=== PATIENT | female | born 1980 | race Caucasian/White ===

== ENCOUNTER 2021-02-15 09:44 | Outpatient (REF) | payer OTHER, SELFPAY ==
[2021-02-15 12:42] LABS: Alanine Aminotransferase 14 U/L (0-31); Anion Gap 12 (12-20); Aspartate Amino Transferase 15 U/L (5-31); Blood Urea Nitrogen 14 mg/dL (9-16); Calcium 9.4 mg/dL (8.4-10.2); Carbon Dioxide 25 mmol/L (22-29); Chloride 107 mmol/L (96-108); Cholesterol 196 mg/dL; Estimated Glomerular Filt Rate > 60; Glucose Fasting 84 mg/dL (60-99); HDL Cholesterol 71 mg/dL; LDL Cholesterol Calculated 107 mg/dl; Potassium 4.6 mmol/L (3.3-5.1); Sodium 139 mmol/L (135-145); Triglycerides 91 mg/dL
[2021-02-15 13:06] LABS: TSH reflex Free T4 2.28 uIU/mL (0.32-4.0); Vitamin D 25-OH Total 16.1 ng/mL (>30)
== END 2021-02-15 09:45 | disposition home or self-care (01) ==
LOC: HO.HMGCLDS 09:44
PROVIDERS: PCP Internal Medicine; Visit Provider Internal Medicine
DX: Z00.00 Encounter for general adult medical examination without abnormal findings (principal); F41.1 Generalized anxiety disorder; Z83.49 Family history of other endocrine, nutritional and metabolic diseases; F44.1 Dissociative fugue
CPT/HCPCS: 36415; 80048; 80061; 82306; 84443; 84450; 84460

== ENCOUNTER 2021-04-05 16:14 | Outpatient (REF) | payer OTHER, SELFPAY ==
--- NOTE | ~2021-04-05 | MM_ITS ---
EXAMINATION: MM SCREENING DIGITAL BREAST TOMOSYNTHESIS, BILATERAL CLINICAL INFORMATION: Screening. Asymptomatic. No prior mammography. Age 41. No known family history breast cancer. The lifetime risk of breast cancer based on the Tyrer-Cuzick Model is 9%. COMPARISON: None (current study represents initial baseline exam). TECHNIQUE: Digital breast tomosynthesis is performed in both the craniocaudal and mediolateral oblique views along with computer-aided detection (CAD). Synthesized 2D images are generated from the tomosynthesis. FINDINGS: The breasts are heterogeneously dense, which may obscure small masses (ACR BI-RADS breast composition Category c). There are no significant masses, abnormal calcifications, or other abnormalities. No architectural abnormality. The axilla and skin contours are unremarkable. MM/MM tomosynthesis screening BI IMPRESSION: No mammographic evidence of malignancy. ASSESSMENT: BI-RADS 1: Negative RECOMMENDATION: Routine annual mammography screening. This patient's information was entered into a reminder system with a target due date for their next mammogram.
== END 2021-04-05 16:15 | disposition home or self-care (01) ==
LOC: HO.MAMMO 16:14
PROVIDERS: Visit Provider Internal Medicine
DX: Z12.31 Encounter for screening mammogram for malignant neoplasm of breast (principal)
CPT/HCPCS: 77063; 77067

== ENCOUNTER 2022-02-19 13:20 | Outpatient (AMB) | payer OTHER, SELFPAY ==
[2022-02-19 13:33] VITALS: BP 100/58; PULSE 70; O2SAT 100; BMI 30.2
--- NOTE | 2022-02-19 13:33 | MHC.PC.OV ---
Vital Signs 02/19/22 13:33 Height 5 ft 6 in Weight 187 lb 6 oz BMI 30.2 BP 100/58 L Blood Pressure Location Rt brachial Position Sitting Pulse 70 Pulse Source Pulse Oximeter Pulse Oximetry (%) 100 Oxygen Delivery Method Room Air Intake Visit Reasons: ELIZABETH ramirez Allergies No Known Allergies Allergy (Verified 04/14/24 14:37) Medication List - Last Reconciled 02/19/22 by Lindsey Garza MD buspirone 5 mg PO BID cetirizine (Zyrtec) 10 mg PO DAILY PRN cholecalciferol (vitamin D3) 25 mcg PO DAILY Tobacco use date assessed: 02/19/22 HPI ELIZABETH ramirez HPI Details ] PFSH Medical History Multiple atypical skin moles Seasonal allergies Family history of thyroid disease in mother Generalized anxiety disorder Surgical History No pertinent past surgical history Social History Housing: House Patient Tobacco Use Status: Never used Tobacco e-Cigarette/Vaping Use: Never Used service: No Current occupational status: employed Cognitive needs: No Hearing needs: No Vision needs: Yes Questionnaire PHQ-9 Over the last 2 weeks, how often have you been bothered by any of the following problems? 1. Little interest or pleasure in doing things: several days 2. Feeling down, depressed, or hopeless: several days 3. Trouble falling or staying asleep, or sleeping too much: not at all 4. Feeling tired or having little energy: more than half the days 5. Poor appetite or overeating: more than half the days 6. Feeling bad about yourself - or that you are a failure or have let yourself or your family down: several days 7. Trouble concentrating on things, such as reading the newspaper or watching television: not at all 8. Moving or speaking so slowly that other people could have noticed. Or the opposite - being so fidgety or restless that you have been moving around a lot more than usual: not at all 9. Thoughts that you would be better off or of hurting yourself in some way: not at all Total score: 7 Source: Developed by Drs. Rodolfo Diallo, Isaiah Drake and colleagues, with an educational amber from [employer]. Thrive Questionnaire Date Thrive assessed: 02/19/22 I am a: Patient What is your living situation today?: I have a steady place to live Within the past 12 months, did the food you bought not last and you didn't have the money to get more?: Never true Within the past 12 months, did you worry whether your food would run out before you got money to buy more?: Never true Do you have trouble paying for medicines?: No Do you have trouble getting transportation to medical appointments?: No Do you have trouble paying your heating and electricity bill?: No Do you have trouble taking care of your child, family member or friend?: No Do you have trouble with day-to-day activities such as bathing, preparing meals, shopping, managing finances, etc.?: No Are you currently unemployed and looking for a job?: No Are you interested in more education?: Yes Currently or been in a relationship where the following occur: no concerns reported AUDIT C Alcohol Use Questionnaire (AUDIT-C) 1. How often do you have a drink containing alcohol?: 2-3 times a week 2. How many drinks containing alcohol do you have on a typical day when you are drinking?: 1 or 2 3. How often do you have six or more drinks on one occasion?: Never Total Score: 3 CORA-7 AMB Questionnaire CORA-7 Date CORA - 7 assessed: 03/14/21 Feeling nervous, anxious, or on edge: 1 = Several days Not being able to stop or control worryin = Several days Worrying too much about different things: 1 = Several days Trouble relaxin = Not at all Being so restless that it is hard to sit still: 1 = Several days Becoming easily annoyed or irritable: 1 = Several days Feeling afraid as if something awful might happen: 0 = Not at all Total CORA-7 score (0-4 normal; 5-9 mild; 10-14 moderate; 15-21 severe): 5 Source: Developed by Katerin York Kurt Kroenke and colleagues, with an educational amber from [employer]. Physical exam (Primary Care) Vital Signs: Last Vital Signs Pulse 70 02/19/22 13:33 BP 100/58 L 02/19/22 13:33 Pulse Ox 100 02/19/22 13:33 Oxygen Delivery Method Room Air 02/19/22 13:33 BMI result Body Mass Index 30.2 Tobacco/Smoking Status: Tobacco use Status Tobacco use date assessed 02/19/22 02/19/22 13:38 Patient Tobacco Use Status Never used Tobacco 02/19/22 13:38 e-Cigarette/Vaping Use Never Used 02/19/22 13:38 PHQ-9: PHQ-9 Score PHQ-9: Total score 7 02/19/22 13:53 Thrive Assessment: Date of Thrive Assessment Date Thrive assessed 02/19/22 02/19/22 13:38 Currently or been in a relationship where the following occur: no concerns reported Coding Level of Care Code Admin Sign Off/No Billing Diagnoses Generalized anxiety disorder F41.1 Annual visit for general adult medical examination with abnormal findings Z00.01
== END 2022-02-19 14:10 | disposition home or self-care (01) ==
LOC: HO.HMGC 13:20
PROVIDERS: PCP Internal Medicine; Visit Provider Internal Medicine
DX: F41.1 Generalized anxiety disorder (principal); Z00.01 Encounter for general adult medical examination with abnormal findings
CPT/HCPCS: 99499

== ENCOUNTER 2022-02-21 06:54 | Outpatient (REF) | payer OTHER, SELFPAY ==
[2022-02-21 12:09] LABS: Alanine Aminotransferase 11 U/L (0-31); Anion Gap 14 (12-20); Aspartate Amino Transferase 17 U/L (5-31); Blood Urea Nitrogen 18 mg/dL (9-16); Calcium 9.4 mg/dL (8.4-10.2); Carbon Dioxide 25 mmol/L (22-29); Chloride 107 mmol/L (96-108); Cholesterol 144 mg/dL; Estimated Glomerular Filt Rate > 60; Glucose Fasting 87 mg/dL (60-99); HDL Cholesterol 70 mg/dL; LDL Cholesterol Calculated 60 mg/dl; Potassium 4.5 mmol/L (3.3-5.1); Sodium 141 mmol/L (135-145); Triglycerides 74 mg/dL
[2022-02-21 12:14] LABS: Vitamin D 25-OH Total 32.2 ng/mL (>30)
== END 2022-02-21 06:55 | disposition home or self-care (01) ==
LOC: HO.HMGCLDS 06:54
PROVIDERS: PCP Internal Medicine; Visit Provider Internal Medicine
DX: Z00.01 Encounter for general adult medical examination with abnormal findings (principal); F41.1 Generalized anxiety disorder
CPT/HCPCS: 36415; 80048; 80061; 82306; 84450; 84460

== ENCOUNTER 2022-05-31 08:37 | Outpatient (REF) | payer OTHER, SELFPAY ==
--- NOTE | ~2022-05-31 | MM_ITS ---
EXAMINATION: MM SCREENING DIGITAL BREAST TOMOSYNTHESIS, BILATERAL CLINICAL INFORMATION: Screening. Asymptomatic. The lifetime risk of breast cancer based on the Tyrer-Cuzick Model is 8%. COMPARISON: Mammography: April 05, 2021 TECHNIQUE: Digital breast tomosynthesis is performed in both the craniocaudal and mediolateral oblique views along with computer-aided detection (CAD). Synthesized 2D images are generated from the tomosynthesis. FINDINGS: The breasts are extremely dense, which lowers the sensitivity of mammography (ACR BI-RADS breast composition Category d). There are no significant masses, abnormal calcifications, or other abnormalities. MM/MM tomosynthesis screening BI IMPRESSION: No significant changes from prior exam. ASSESSMENT: BI-RADS 1: Negative RECOMMENDATION: Routine annual mammography screening. This patient's information was entered into a reminder system with a target due date for their next mammogram.
== END 2022-05-31 08:38 | disposition home or self-care (01) ==
LOC: HO.MAMMO 08:37
PROVIDERS: PCP Internal Medicine; Visit Provider Internal Medicine
DX: Z12.31 Encounter for screening mammogram for malignant neoplasm of breast (principal)
CPT/HCPCS: 77063; 77067

== ENCOUNTER 2023-04-06 08:30 | Outpatient (AMB) | payer OTHER, SELFPAY ==
--- NOTE | 2023-04-06 08:34 | MHC.PC.OV ---
Vital Signs 04/06/23 08:39 Height 5 ft 6 in Weight 191 lb BMI 30.8 BP 92/62 Blood Pressure Location Lt brachial Position Sitting Pulse 55 Pulse Source Pulse Oximeter Pulse Oximetry (%) 99 Oxygen Delivery Method Room Air Intake Visit Reasons: Annual PE Intake Note: Pt is here today for her PE: last mammogram 05/31/22, papsmear 07/2022 Allergies No Known Allergies Allergy (Verified 04/06/23 08:52) Medication List - Last Reconciled 04/06/23 by Lindsey Garza MD buspirone 5 mg PO BID cetirizine (Zyrtec) 10 mg PO DAILY PRN cholecalciferol (vitamin D3) 25 mcg PO DAILY Tobacco use date assessed: 04/06/23 Dental Screening Dental Screen Date: 04/06/23 Did you have a dental visit in the last 12 months?: Yes Did you have a dental problem in the last 6 months where you did not have access to dental care?: No Was dental information given to patient?: Patient has dentist HPI Annual PE HPI Details 43-year-old lady here today for physical exam. She is up-to-date with her mammogram done last 05/31/22, and her pap smear was done. . 07/2022. She takes buspirone 5 mg 1 tablet twice a day for her generalized anxiety disorder which has been helping, usually takes twice a day but sometimes would take an occasional dose when she is out in public in the movie house or in a restaurant when she gets an anxiety attack. Has multiple moles on her body mainly on her upper back and left thigh which she would like checked by dermatology. No history of melanoma or skin cancer in the family. She does use sunscreen. [facility] Medical History (Updated 04/06/23 @ 09:09 by Lindsey Garza MD) Multiple atypical skin moles Seasonal allergies Family history of thyroid disease in mother Generalized anxiety disorder Surgical History No pertinent past surgical history Social History Housing: House Patient Tobacco Use Status: Never used Tobacco e-Cigarette/Vaping Use: Never Used service: No Current occupational status: employed Cognitive needs: No Hearing needs: No Vision needs: No Female Reproductive History Menstrual Date of last pap smear: 08/15/22 (Sees Dr. Mar) Questionnaire PHQ-9 Over the last 2 weeks, how often have you been bothered by any of the following problems? 1. Little interest or pleasure in doing things: several days 2. Feeling down, depressed, or hopeless: not at all 3. Trouble falling or staying asleep, or sleeping too much: several days 4. Feeling tired or having little energy: several days 5. Poor appetite or overeating: several days 6. Feeling bad about yourself - or that you are a failure or have let yourself or your family down: not at all 7. Trouble concentrating on things, such as reading the newspaper or watching television: not at all 8. Moving or speaking so slowly that other people could have noticed. Or the opposite - being so fidgety or restless that you have been moving around a lot more than usual: not at all 9. Thoughts that you would be better off or of hurting yourself in some way: not at all Total score: 4 Depression Screening Interpretation: Positive Depression Screening Done: Yes [id number] - PHQ-9 Billing: Yes Source: Developed by Drs. Rodolfo Diallo, Katerin Taveras, Isaiah Moulton and colleagues, with an educational amber from [employer]. Thrive Questionnaire Date Thrive assessed: 04/06/23 I am a: Patient What is your living situation today?: I have a steady place to live Within the past 12 months, did the food you bought not last and you didn't have the money to get more?: Never true Within the past 12 months, did you worry whether your food would run out before you got money to buy more?: Never true Do you have trouble paying for medicines?: No Do you have trouble getting transportation to medical appointments?: No Do you have trouble paying your heating and electricity bill?: No Do you have trouble taking care of your child, family member or friend?: No Do you have trouble with day-to-day activities such as bathing, preparing meals, shopping, managing finances, etc.?: No Are you currently unemployed and looking for a job?: No Are you interested in more education?: No THRIVE Score: 0 AUDIT C Alcohol Use Questionnaire (AUDIT-C) 1. How often do you have a drink containing alcohol?: 2-3 times a week 2. How many drinks containing alcohol do you have on a typical day when you are drinking?: 1 or 2 3. How often do you have six or more drinks on one occasion?: Never Total Score: 3 CORA-7 AMB Questionnaire CORA-7 Date CORA - 7 assessed: 04/06/23 Feeling nervous, anxious, or on edge: 1 = Several days Not being able to stop or control worryin = Not at all Worrying too much about different things: 0 = Not at all Trouble relaxin = Several days Being so restless that it is hard to sit still: 0 = Not at all Becoming easily annoyed or irritable: 1 = Several days Feeling afraid as if something awful might happen: 0 = Not at all Total CORA-7 score (0-4 normal; 5-9 mild; 10-14 moderate; 15-21 severe): 3 Source: Developed by Drs. Rodolfo Diallo, Katerin Taveras, Isaiah Moulton and colleagues, with an educational amber from [employer]. CORA-7 Assessment Billing CORA-7 Assessment Tool: CORA-7 Assessment 77150 Review of Systems Const Denies fatigue, Denies headache(s) and Denies weakness Eyes Details: Has myopia, up-to-date with her eye exam ENT Reports Normal hearing present, Denies dizziness, Denies headache(s) and Denies nasal congestion Card Denies chest pain, Denies lightheadedness, Denies palpitations and Denies dyspnea Resp Denies chest congestion, Denies cough and Denies dyspnea GI Denies abdominal pain, Denies change in bowel habits and Denies heartburn Reports no additional complaints Musc Reports no additional complaints Skin/Breast Reports as per HPI, Denies breast swelling, Denies breast skin changes, Denies breast pain, Denies breast mass and Denies rash Neuro Reports Normal hearing present, Denies dizziness, Denies headache(s), Denies Sensory deficit (Neuro) and Denies weakness Psych Reports no additional complaints Endo Denies fatigue and Denies palpitations Romie/Lymph Reports no additional complaints Aller/Immun Reports no additional complaints Physical exam (Primary Care) Vital Signs: Last Vital Signs Pulse 55 04/06/23 08:39 BP 92/62 04/06/23 08:39 Pulse Ox 99 04/06/23 08:39 Oxygen Delivery Method Room Air 04/06/23 08:39 BMI result Body Mass Index 30.8 Tobacco/Smoking Status: Tobacco use Status Tobacco use date assessed 04/06/23 04/06/23 08:37 Patient Tobacco Use Status Never used Tobacco 04/06/23 08:37 e-Cigarette/Vaping Use Never Used 04/06/23 08:37 PHQ-9: PHQ-9 Score PHQ-9: Total score 4 04/06/23 08:44 Depression Screening Interpretation: Positive Thrive Assessment: Date of Thrive Assessment Date Thrive assessed 04/06/23 04/06/23 08:37 Const General: cooperative, healthy appearing, no acute distress and alert Orientation/consciousness: patient oriented x3 Limitations: no limitations HENMT Head: Yes normal to inspection, Yes normocephalic and Yes atraumatic Ears: hearing grossly normal bilaterally, external ears normal, TM's normal bilaterally and EAC's normal General nose exam: Normal external nose present, Normal nasal mucous membranes and turbinates present and No nasal discharge present Face and sinus: Yes normal facial exam, Yes sinuses nontender and Yes face symmetric Mouth: Normal oral and palatal mucosa present, lip normal, tongue normal, oropharynx normal and moist mucous membranes Eyes Conjunctivae: conjunctivae normal Sclerae: sclerae normal Pupils: Equal, round and reactive pupils present EOM: EOMs intact bilaterally Neck Neck: Yes full ROM and Yes no lymphadenopathy Thyroid: Thyroid normal (Nonpalpable) Chest Breast/axilla palpation: normal palpation of the breasts Resp Effort & Inspection: normal respiratory effort and able to speak in complete sentences Auscultation: clear to auscultation bilaterally Cardio Jugular venous distension: no JVD Rate: regular rate Rhythm: regular rhythm Heart sounds: S1 normal heart sound present and S2 normal heart sound present GI Inspection: Yes normal to inspection Palpation (GI): Soft to palpation, nontender, no guarding and no masses Auscultation: normal bowel sounds General: Yes no CVA tenderness Back/Spine/Pelvis Back: no CVA tenderness Skin General skin exam: no rashes or lesions noted Neuro General: patient oriented x3, gait normal, moves all extremities, no focal motor deficits and CN's II-XI intact bilaterally Cranial nerves: Yes Equal, round and reactive pupils present and Yes Normal hearing present Cognition (Neuro): normal cognition Gait exam (Neuro): Normal gait present Motor exam (neuro): 5/5 motor strength present throughout Sensory Exam: No Sensory deficit (Neuro) Extrem General: Yes normal to inspection, Yes full ROM, Yes no pedal edema and Yes normal gait Psych Appearance: grossly normal and well kempt Mental Status: mental status grossly normal Speech and movement: Normal speech and movement present Affect: normal affect Attitude: cooperative Thought process: Normal thought process present Thought content: Normal thought content present Assessment and Plan Assessment & Plan (1) Annual visit for general adult medical examination with abnormal findings: Code(s): Z00.01 - Encounter for general adult medical examination with abnormal findings Plan: Will check appropriate labs. Continue with regular dental visit every 6 months and regular eye exams, goes to [place] for her routine eye exam. Take adequate calcium in diet and vitamin-D 3 at 2000 IU per cap once a day, in addition to weight-bearing exercises to help maintain good muscle tone and weight control. Up-to-date with her cervical cancer screening, and mammogram. Has had COVID vaccines in the past, does not want to get the booster, up-to-date with her flu vaccine (2) Generalized anxiety disorder: Code(s): F41.1 - Generalized anxiety disorder Plan: Continue with buspirone 5 mg 1 tablet twice a day takes an occasional dose as needed for acute anxiety attacks. (3) Family history of thyroid disease in mother: Code(s): Z83.49 - Family history of other endocrine, nutritional and metabolic diseases Plan: Will check TSH with free T4, patient currently asymptomatic (4) Multiple atypical skin moles: Code(s): D22.9 - Melanocytic nevi, unspecified Plan: Referred to [facility] for evaluation of moles on upper back and left thigh and for routine skin exam (5) Skin cancer screening: Code(s): Z12.83 - Encounter for screening for malignant neoplasm of skin Plan: Referred to [facility] Orders: Orders Basic Metabolic Panel Fasting Today F41.1 - Generalized anxiety disorder, Z00.01 - Encounter for general adult medical examination with abnormal findings, Z13.1 - Encounter for screening for diabetes mellitus, Z13.220 - Encounter for screening for lipoid disorders Alanine Aminotransferase Today F41.1 - Generalized anxiety disorder, Z00.01 - Encounter for general adult medical examination with abnormal findings, Z13.1 - Encounter for screening for diabetes mellitus, Z13.220 - Encounter for screening for lipoid disorders Aspartate Amino Transferase Today F41.1 - Generalized anxiety disorder, Z00.01 - Encounter for general adult medical examination with abnormal findings, Z13.1 - Encounter for screening for diabetes mellitus, Z13.220 - Encounter for screening for lipoid disorders Lipid Panel Today F41.1 - Generalized anxiety disorder, Z00.01 - Encounter for general adult medical examination with abnormal findings, Z13.1 - Encounter for screening for diabetes mellitus, Z13.220 - Encounter for screening for lipoid disorders Vitamin D 25-OH Total Today F41.1 - Generalized anxiety disorder, Z00.01 - Encounter for general adult medical examination with abnormal findings, Z13.1 - Encounter for screening for diabetes mellitus, Z13.220 - Encounter for screening for lipoid disorders TSH reflex Free T4 Today Z83.49 - Family history of other endocrine, nutritional and metabolic diseases Referrals Dermatology Referral D22.9 - Melanocytic nevi, unspecified, Z12.83 - Encounter for screening for malignant neoplasm of skin Coding Level of Care Code Est Pt Prev Care 40-64y([id number]) Diagnoses Annual visit for general adult medical examination with abnormal findings Z00.01 Generalized anxiety disorder F41.1 Family history of thyroid disease in mother Z83.49 Multiple atypical skin moles D22.9 Skin cancer screening Z12.83 Additional Codes CORA-7 Assessment Billing - CORA-7 Assessment Tool: CORA-7 Assessment [id number] ([id number])
[2023-04-06 08:39] VITALS: BP 92/62; PULSE 55; O2SAT 99; BMI 30.8
== END 2023-04-06 09:11 | disposition home or self-care (01) ==
PROVIDERS: PCP Internal Medicine; Visit Provider Internal Medicine
DX: Z00.00 Encounter for general adult medical examination without abnormal findings (principal); F41.1 Generalized anxiety disorder; Z83.49 Family history of other endocrine, nutritional and metabolic diseases; D22.9 Melanocytic nevi, unspecified; Z12.83 Encounter for screening for malignant neoplasm of skin
CPT/HCPCS: 99396

== ENCOUNTER 2023-04-06 09:12 | Outpatient (REF) | payer OTHER, SELFPAY ==
[2023-04-06 11:40] LABS: Alanine Aminotransferase 12 U/L (0-31); Anion Gap 12 (12-20); Aspartate Amino Transferase 16 U/L (5-31); Blood Urea Nitrogen 13 mg/dL (9-16); Calcium 9.2 mg/dL (8.4-10.2); Carbon Dioxide 25 mmol/L (22-29); Chloride 106 mmol/L (96-108); Cholesterol 157 mg/dL (<200); Estimated Glomerular Filt Rate > 60; Glucose Fasting 86 mg/dL (60-99); HDL Cholesterol 66 mg/dL (>40); LDL Cholesterol Calculated 80 mg/dL (<100); Sodium 139 mmol/L (135-145); Triglycerides 55 mg/dL (<150)
[2023-04-06 11:46] LABS: TSH reflex Free T4 2.17 uIU/mL (0.32-4.0); Vitamin D 25-OH Total 29.4 ng/mL (>30)
== END 2023-04-06 09:13 | disposition home or self-care (01) ==
LOC: HO.HMGCLDS 09:12
PROVIDERS: PCP Internal Medicine; Visit Provider Internal Medicine
DX: Z00.01 Encounter for general adult medical examination with abnormal findings (principal); F41.1 Generalized anxiety disorder; Z13.220 Encounter for screening for lipoid disorders; Z13.1 Encounter for screening for diabetes mellitus; Z83.49 Family history of other endocrine, nutritional and metabolic diseases
CPT/HCPCS: 36415; 80048; 80061; 82306; 84443; 84450; 84460

== ENCOUNTER 2023-06-06 07:57 | Outpatient (REF) | payer OTHER, SELFPAY ==
--- NOTE | ~2023-06-06 | MM_ITS ---
EXAMINATION: MM SCREENING DIGITAL BREAST TOMOSYNTHESIS, BILATERAL CLINICAL INFORMATION: Screening. Asymptomatic. COMPARISON: Mammography: This study is compared with prior exams dating back to 2021. TECHNIQUE: Digital breast tomosynthesis is performed in both the craniocaudal and mediolateral oblique views along with computer-aided detection (CAD). Synthesized 2D images are generated from the tomosynthesis. FINDINGS: The breasts are heterogeneously dense, which may obscure small masses (ACR BI-RADS breast composition Category c). There are no significant masses, abnormal calcifications, or other abnormalities. MM/MM tomosynthesis screening BI IMPRESSION: No mammographic evidence of malignancy. ASSESSMENT: BI-RADS BI-RADS 1 - Negative RECOMMENDATION: Routine annual mammography screening. 1 year F/U This examination should not preclude the clinical evaluation of a suspicious palpable abnormality. This patient's information was entered into a reminder system with a target due date for their next mammogram.
== END 2023-06-06 07:58 | disposition home or self-care (01) ==
LOC: HO.MAMMO 07:57
PROVIDERS: PCP Internal Medicine; Visit Provider Internal Medicine
DX: Z12.31 Encounter for screening mammogram for malignant neoplasm of breast (principal)
CPT/HCPCS: 77063; 77067

== ENCOUNTER → 2023-06-06 08:00 | Outpatient (BNV) | payer OTHER, SELFPAY | PROVIDERS: PCP Internal Medicine; Visit Provider Radiology Diagnostic Radiology | DX: Z12.31 Encounter for screening mammogram for malignant neoplasm of breast (principal) | CPT/HCPCS: 77063; 77067 ==

== ENCOUNTER 2024-04-14 13:54 | Outpatient (AMB) | payer OTHER, SELFPAY ==
--- NOTE | 2024-04-14 14:17 | A.OFFPC_ITS ---
Vital Signs 04/14/24 14:22 Height 5 ft 6 in Weight 192 lb BMI 31.0 BP 100/68 Blood Pressure Location Rt brachial Position Sitting Respiration 15 Pulse 80 Pulse Source Pulse Oximeter Temp 97.7 F Temp Source Oral Pulse Oximetry (%) 100 Oxygen Delivery Method Room Air Intake Visit Reasons: Annual PE Intake Note: Pt is here today for her PE: Last mammogram 06/06/23, papsmear 07/29/22 Allergies No Known Allergies Allergy (Verified 04/14/24 14:37) Medication List - Last Reconciled 04/14/24 by Lindsey Garza MD buspirone 5 mg PO BID cetirizine (Zyrtec) 10 mg PO DAILY PRN cholecalciferol (vitamin D3) 25 mcg PO DAILY Tobacco use date assessed: 04/14/24 Dental Screening Dental Screen Date: 04/14/24 Did you have a dental visit in the last 12 months?: Yes Did you have a dental problem in the last 6 months where you did not have access to dental care?: No Was dental information given to patient?: Patient has dentist HPI Annual PE HPI Details 44-year-old lady with history of general ized anxiety disorder currently on buspirone 5 mg 1 tablet twice a day, has seasonal allergies currently taking cetirizine 10 mg as needed, and has history of vitamin-D deficiency, currently taking vitamin-D 3000 units daily, here today for physical exam.She is up-to- date with her screening mammogram done in 05/2023, with negative findings. She sees Dr. Gaona, who did her Pap on 07/29/2022 with negative findings. She is up-to-date with all her vaccines. She has been feeling well, with no complaints at present time. Needs another referral to Dermatology for evaluation of atypical moles, missed her last appointment a year ago [facility] Medical History Multiple atypical skin moles Seasonal allergies Family history of thyroid disease in mother Generalized anxiety disorder Surgical History No pertinent past surgical history Social History Housing: House Patient Tobacco Use Status: Never used Tobacco e-Cigarette/Vaping Use: Never Used service: No Current occupational status: employed Cognitive needs: No Hearing needs: No Vision needs: Yes Questionnaire PHQ-9 Over the last 2 weeks, how often have you been bothered by any of the following problems? 1. Little interest or pleasure in doing things: not at all 2. Feeling down, depressed, or hopeless: not at all 3. Trouble falling or staying asleep, or sleeping too much: not at all 4. Feeling tired or having little energy: not at all 5. Poor appetite or overeating: not at all 6. Feeling bad about yourself - or that you are a failure or have let yourself or your family down: not at all 7. Trouble concentrating on things, such as reading the newspaper or watching television: not at all 8. Moving or speaking so slowly that other people could have noticed. Or the opposite - being so fidgety or restless that you have been moving around a lot more than usual: not at all 9. Thoughts that you would be better off or of hurting yourself in some way: not at all Total score: 0 Depression Screening Interpretation: Negative Depression Screening Done: Yes 58148 - PHQ-9 Billing: Yes Source: Developed by Drs. Rodolfo Diallo, Katerin Taveras, Isaiah Moulton and colleagues, with an educational amber from [employer]. Thrive Questionnaire Date Thrive assessed: 04/14/24 I am a: Patient What is your living situation today?: I have a steady place to live Within the past 12 months, did the food you bought not last and you didn't have the money to get more?: Never true Within the past 12 months, did you worry whether your food would run out before you got money to buy more?: Never true Do you have trouble paying for medicines?: No Do you have trouble getting transportation to medical appointments?: No Do you have trouble paying your heating and electricity bill?: No Do you have trouble taking care of your child, family member or friend?: No Do you have trouble with day-to-day activities such as bathing, preparing meals, shopping, managing finances, etc.?: No Are you currently unemployed and looking for a job?: No Are you interested in more education?: No Please select the resources that you would like help with: None Currently or been in a relationship where the following occur: No concerns reported THRIVE Score: 0 AUDIT C Alcohol Use Questionnaire (AUDIT-C) 1. How often do you have a drink containing alcohol?: 2-4 times a month 2. How many drinks containing alcohol do you have on a typical day when you are drinking?: 1 or 2 3. How often do you have six or more drinks on one occasion?: Never Total Score: 2 CORA-7 AMB Questionnaire CORA-7 Date CORA - 7 assessed: 04/14/24 Feeling nervous, anxious, or on edge: 1 = Several days Not being able to stop or control worryin = Not at all Worrying too much about different things: 1 = Several days Trouble relaxin = Several days Being so restless that it is hard to sit still: 0 = Not at all Becoming easily annoyed or irritable: 2 = More than half the days Feeling afraid as if something awful might happen: 0 = Not at all Total CORA-7 score (0-4 normal; 5-9 mild; 10-14 moderate; 15-21 severe): 5 Source: Developed by Drs. Rodolfo Diallo, Katerin Taveras, Isaiah Moulton and colleagues, with an educational amber from [employer]. CORA-7 Assessment Billing CORA-7 Assessment Tool: CORA-7 Assessment 30210 Review of Systems Const Denies fatigue, Denies headache(s) and Denies weakness Eyes Details: Has myopia, up-to-date with her eye exam Reports requires corrective lenses ENT Reports Normal hearing present, Denies dizziness, Denies headache(s) and Denies nasal congestion Card Denies chest pain, Denies lightheadedness, Denies palpitations and Denies d yspnea Resp Denies chest congestion, Denies cough and Denies dyspnea GI Denies abdominal pain, Denies change in bowel habits and Denies heartburn Reports no additional complaints Musc Reports no additional complaints Skin/Breast Reports as per HPI, Denies breast swelling, Denies breast skin changes, Denies breast pain, Denies breast mass and Denies rash Neuro Reports Normal hearing present, Denies dizziness, Denies headache(s), Denies Sensory deficit (Neuro) and Denies weakness Psych Reports no additional complaints Endo Denies fatigue and Denies palpitations Romie/Lymph Reports no additional complaints Aller/Immun Reports no additional complaints Physical exam (Primary Care) Vital Signs: Last Vital Signs Temp 97.7 F 04/14/24 14:22 Pulse 80 04/14/24 14:22 Resp 15 04/14/24 14:22 BP 100/68 04/14/24 14:22 Pulse Ox 100 04/14/24 14:22 Oxygen Delivery Method Room Air 04/14/24 14:22 BMI result Body Mass Index 31.0 Tobacco/Smoking Status: Tobacco use Status Tobacco use date assessed 04/14/24 04/14/24 14:27 Patient Tobacco Use Status Never used Tobacco 04/14/24 14:17 e-Cigarette/Vaping Use Never Used 04/14/24 14:17 PHQ-9: PHQ-9 Score PHQ-9: Total score 0 04/14/24 14:17 Depression Screening Interpretation: Negative Thrive Assessment: Date of Thrive Assessment Date Thrive assessed 04/14/24 04/14/24 14:27 Currently or been in a relationship where the following occur: No concerns repor pawan Advance Care Planning discussion: Completed/Scanned Date of discussion: 04/14/24 Who was present: Patient Forms completed: Health Care Proxy Time spent: 16-45 minutes Actual minutes spent: 2 Const General: no acute distress and alert Orientation/consciousness: patient oriented x3 Limitations: no limitations HENMT Head: Yes normal to inspection Ears: external ears normal, TM's normal bilaterally and EAC's normal General nose exam: Normal external nose present Face and sinus: Yes face symmetric Mouth: oropharynx normal and moist mucous membranes Eyes Conjunctivae: conjunctivae normal Sclerae: sclerae normal Pupils: Equal, round and reactive pupils present EOM: EOMs intact bilaterally Neck Neck: Yes full ROM and Yes no lymphadenopathy Thyroid: Thyroid normal (Nonpalpable) Chest Breast/axilla palpation: normal palpation of the breasts Resp Effort & Inspection: normal respiratory effort and able to speak in complete sentences Auscultation: clear to auscultation bilaterally Cardio Jugular venous distension: no JVD Rate: regular rate Rhythm: regular rhythm Heart sounds: S1 normal heart sound present and S2 normal heart sound present GI Inspection: Yes normal to inspection Palpation (GI): Soft to palpation, nontender, no guarding and no masses Auscultation: normal bowel sounds General: Yes no CVA tenderness Back/Spine/Pelvis Back: no CVA tenderness Skin General skin exam: no rashes or lesions noted Neuro General: patient oriented x3, gait normal, moves all extremities, no focal motor deficits and CN's II-XI intact bilaterally Cranial nerves: Yes Equal, round and reactive pupils present and Yes Normal hearing present Cognition (Neuro): normal cognition Gait exam (Neuro): Normal gait present Motor exam (neuro): 5/5 motor strength present throughout Sensory Exam: No Sensory deficit (Neuro) Extrem General: Yes normal to inspection, Yes full ROM, Yes no pedal edema and Yes normal gait Psych Appearance: grossly normal and well kempt Mental Status: mental status grossly normal Speech and movement: Normal speech and movement present Affect: normal affect Attitude: cooperative Thought process: Normal thought process present Thought content: Normal thought content present Coding Level of Care Code Est Pt Prev Care 40-64y(48666) Diagnoses Annual visit for general adult medical examination with abnormal findings Z00.01 Generalized anxiety disorder F41.1 Seasonal allergies J30.2 Encounter for counseling regarding advance directives Z71.89 Multiple atypical skin moles D22.9 Additional Codes PHQ-9 - 19652 - PHQ-9 Billing: Yes ([id number]) CORA-7 Assessment Billing - CORA-7 Assessment Tool: CORA-7 Assessment 89625 ([id number]) Vital Signs *Quality* - Advance Care Planning discussion: Completed/Scanned ([id number]) Vital Signs *Quality* - Time spent: 16-45 minutes ([id number]) Assessment & Plan Assessment & Plan (1) Annual visit for general adult medical examination with abnormal findings: Code(s): Z00.01 - Encounter for general adult medical examination with abnormal findings Plan: Will check appropriate labs. Continue regular dental visit every 6 months and regular eye exams, at least every 2 years. Take adequate calcium in diet and vitamin-D 3 at 2000 IU per cap once a day, in addition to weight-bearing exercises to help maintain good muscle tone and weight control. Instructed to do self-breast exam, and continue with yearly mammogram, due again in 06/05/2024. She is up-to-date with all her vaccinations but did not want to get a COVID booster any (2) Generalized anxiety disorder: Code(s): F41.1 - Generalized anxiety disorder Category: Medical Plan: Currently stable controlled on buspirone 5 mg taken 1 tablet twice a day (3) Seasonal allergies: Code(s): J30.2 - Other seasonal allergic rhinitis Category: Medical Plan: Takes cetirizine as needed (4) Encounter for counseling regarding advance directives: Code(s): Z71.89 - Other specified counseling Plan: Initiated the conversation about Advanced Directives. Advanced Directives help patients prepare for current and future decisions about their medical treatment and place of care. Discussed with patient that it is a process where a patients current condition and prognosis are reviewed, their wishes for information regarding their illness are elicited, and likely medical dilemmas are presented and options discussed. Healthcare proxy form completed today. The form can be amended as needed, reviewed yearly and make changes as needed (5) Multiple atypical skin moles: Code(s): D22.9 - Melanocytic nevi, unspecified Category: Medical Plan: Referral made again to see the [facility] for further evaluation management of atypical moles and skin cancer screen Orders: Orders Glucose Fasting Today F41.1 - Generalized anxiety disorder, J30.2 - Other seasonal allergic rhinitis, Z71.89 - Other specified counseling, Z83.49 - Family history of other endocrine, nutritional and metabolic diseases Alanine Aminotransferase Today F41.1 - Generalized anxiety disorder, J30.2 - Other seasonal allergic rhinitis, Z71.89 - Other specified counseling, Z83.49 - Family history of other endocrine, nutritional and metabolic diseases TSH reflex Free T4 Today F41.1 - Generalized anxiety disorder, J30.2 - Other seasonal allergic rhinitis, Z71.89 - Other specified counseling, Z83.49 - Family history of other endocrine, nutritional and metabolic diseases Lipid Panel Today F41.1 - Generalized anxiety disorder, J30.2 - Other seasonal allergic rhinitis, Z71.89 - Other specified counseling, Z83.49 - Family history of other endocrine, nutritional and metabolic diseases Aspartate Amino Transferase Today F41.1 - Generalized anxiety disorder, J30.2 - Other seasonal allergic rhinitis, Z71.89 - Other specified counseling, Z83.49 - Family history of other endocrine, nutritional and metabolic diseases Vitamin D 25-OH Total Today F41.1 - Generalized anxiety disorder, J30.2 - Other seasonal allergic rhinitis, Z71.89 - Other specified counseling, Z83.49 - Family history of other endocrine, nutritional and metabolic diseases Referrals Dermatology Referral D22.9 - Melanocytic nevi, unspecified Medications: Refilled buspirone 5 mg PO BID 180 tabs 4RF F41.1 - Generalized anxiety disorder
[2024-04-14 14:22] VITALS: BP 100/68; PULSE 80; RESP 15; TEMP 36.5; O2SAT 100; BMI 31.0
--- OUTSIDE RECORDS SUMMARY | 2024-04-14 16:47 | XMS_ITS | Clinical Summary ---
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 Name Role Phone Unavailable Primary Care Provider Unavailabl e Social History Tobacco Use Types Packs/Day Years Used Date Smoking Tobacco: Never Assessed Comments Unknown Sex and Gender Information Value Date Recorded Sex Assigned at Not on file Legal Sex Female 1:25 AM EST Gender Identity Not on file Sexual Orientation Not on file Plan of Treatment Health Maintenance Due Date Last Done Comments Breast Cancer Screening 1980 DTaP,Tdap,and Td Vaccines (1 - Tdap) 1999 Hepatitis B Vaccines (1 of 3 - 19+ 3-dose series) 1999 Cervical Cancer Screening: P ap Smear 2001 COVID-19 Vaccine (2023-2 5 season) 2023 Influenza Vaccine (#1) 2023 HIB Vaccines Aged Out No longer eligi ble based on patient's age to complete this topic HPV Vaccines Aged Out No longer eligi ble based on patient's age to complete this topic Hepatitis A Vaccines Aged Out No long er eligible based on patient's age to complete this topic IPV Vaccines Aged Out No longer eligi ble based on patient's age to complete this topic MMR Vaccines Aged Out No longer eligi ble based on patient's age to complete this topic Meningococcal ACWY Vaccine Aged Out N o longer eligible based on patient's age to complete this topic Meningococcal B Vacine Aged Out No lo nger eligible based on patient's age to complete this topic Pneumococcal Vaccine: Pediat rics (0 to 5 Years) and At-Risk Patients (6 to 64 Years) Aged Out No longer eligible b ased on patient's age to complete this topic RSV Immunization Patients Un rosa 20 months Aged Out No longer eligible b ased on patient's age to complete this topic Varicella Vaccines Aged Out No longer eligible based on patient's age to complete this topic
== END 2024-04-14 14:56 | disposition home or self-care (01) ==
PROVIDERS: PCP Internal Medicine; Visit Provider Internal Medicine
DX: Z00.01 Encounter for general adult medical examination with abnormal findings (principal); F41.1 Generalized anxiety disorder; J30.2 Other seasonal allergic rhinitis; Z71.89 Other specified counseling; D22.9 Melanocytic nevi, unspecified; Z00.00 Encounter for general adult medical examination without abnormal findings

== ENCOUNTER → 2024-04-14 13:54 | Outpatient (BNVA) | payer OTHER, SELFPAY | PROVIDERS: PCP Internal Medicine; Visit Provider Internal Medicine | DX: Z00.01 Encounter for general adult medical examination with abnormal findings (principal); F41.1 Generalized anxiety disorder; J30.2 Other seasonal allergic rhinitis; D22.9 Melanocytic nevi, unspecified; Z71.89 Other specified counseling | CPT/HCPCS: 96127; 99497 ==

== ENCOUNTER 2024-04-16 08:52 | Outpatient (REF) | payer OTHER, SELFPAY ==
[2024-04-16 12:15] LABS: Alanine Aminotransferase 12 U/L (0-31); Aspartate Amino Transferase 21 U/L (5-31); Cholesterol 146 mg/dL (<200); Glucose Fasting 91 mg/dL (60-99); HDL Cholesterol 63 mg/dL (>40); LDL Cholesterol Calculated 73 mg/dL (<100); Triglycerides 53 mg/dL (<150)
[2024-04-16 12:29] LABS: Vitamin D 25-OH Total 50.4 ng/mL (>30)
== END 2024-04-16 08:53 | disposition home or self-care (01) ==
LOC: HO.HMGCLDS 08:52
PROVIDERS: PCP Internal Medicine; Visit Provider Internal Medicine
DX: J30.2 Other seasonal allergic rhinitis (principal); Z83.49 Family history of other endocrine, nutritional and metabolic diseases; F41.1 Generalized anxiety disorder; Z71.89 Other specified counseling; Z13.1 Encounter for screening for diabetes mellitus; Z13.6 Encounter for screening for cardiovascular disorders
CPT/HCPCS: 36415; 80061; 82306; 82947; 84443; 84450; 84460

== ENCOUNTER 2024-06-11 08:10 | Outpatient (REF) | payer OTHER, SELFPAY | END 2024-06-11 08:11 | disposition home or self-care (01) | LOC: HO.MAMMO 08:10 | PROVIDERS: PCP Internal Medicine; Visit Provider Internal Medicine | DX: Z12.31 Encounter for screening mammogram for malignant neoplasm of breast (principal) | CPT/HCPCS: 77063; 77067 ==

== ENCOUNTER → 2024-06-11 08:15 | Outpatient (BNV) | payer OTHER, SELFPAY | PROVIDERS: PCP Internal Medicine; Visit Provider Internal Medicine | DX: Z12.31 Encounter for screening mammogram for malignant neoplasm of breast (principal) | CPT/HCPCS: 77063; 77067 ==

== ENCOUNTER 2024-08-04 13:27 | Outpatient (REF) | payer OTHER, SELFPAY ==
--- NOTE | ~2024-08-04 | MM_ITS ---
EXAMINATION: MM DIAGNOSTIC DIGITAL BREAST TOMOSYNTHESIS, LEFT Limited left breast ultrasound. CLINICAL INFORMATION: Call back from screening for asymmetry in the superior left breast on MLO view. COMPARISON: Mammography: [facility] on PACS. TECHNIQUE: Digital breast tomosynthesis is performed in both the craniocaudal and mediolateral oblique views along with computer-aided detection (CAD). Synthesized 2D images are generated from the tomosynthesis. FINDINGS: The breasts are heterogeneously dense, which may obscure small masses (ACR BI-RADS breast composition Category c). Previously seen asymmetry in the superior left breast on MLO view does not persist on additional imaging projections and likely represented overlapping breast tissue. There are no significant masses, abnormal calcifications, or other abnormalities. Targeted color Doppler ultrasound demonstrates an incidental hypoechoic oval simple to minimally complicated cyst at 2:00 11 cm from the nipple measuring 4 x 5 x 3 mm. There is no internal vascular flow, there is through transmission. MM/MM tomosynthesis added views L IMPRESSION: Incidental hypoechoic simple to minimally complicated cyst on ultrasound at 2:00 11 cm from the nipple. Benign. Otherwise no mammographic evidence of malignancy. ASSESSMENT: BI-RADS BI-RADS 2 - Benign Findings RECOMMENDATION: 1 year F/U Results were provided to the patient at time of visit by the technologist. This patient's information was entered into a reminder system with a target due date for their next mammogram. Electronically signed by: Esha Gao DO 08/04/2024 02:26 PM EDT Workstation: [id number]
--- OUTSIDE RECORDS SUMMARY | 2024-08-04 14:36 | XMS_ITS | Clinical Summary ---
Author Organization [facility] ity Address [address] [place] [address] Care Team Providers Care Ordnance Mechanic Name Role Phone Unavailable Primary Care Provider [...] Vaccine (2023-2 5 season) 2023 Influenza Vaccine (Season Ended) 2024 HIB Vaccines Aged Out No longer eligi [...] age to complete this topic Meningococcal B Vaccine Aged Out No l onger eligible based on patient's age to complete [...]
== END 2024-08-04 13:28 | disposition home or self-care (01) ==
LOC: HO.MAMMO 13:27
PROVIDERS: PCP Internal Medicine; Visit Provider Internal Medicine
DX: N64.89 Other specified disorders of breast (principal)
CPT/HCPCS: 76642; 77061; 77065

== ENCOUNTER → 2024-08-04 13:30 | Outpatient (BNV) | payer OTHER, SELFPAY | PROVIDERS: PCP Internal Medicine; Visit Provider Internal Medicine | DX: N64.89 Other specified disorders of breast (principal) | CPT/HCPCS: 76642; 77061; 77065 ==